=== PATIENT | female | born 1960 | race Caucasian/White ===

== ENCOUNTER 2021-04-11 08:39 | Outpatient (CLI) | payer BC | END 2021-04-11 08:40 | disposition home or self-care (01) | LOC: CSHMRI 08:39 | PROVIDERS: ATTEND Nurse Practitioner Acute Care | DX: G35 Multiple sclerosis (principal); G95.9 Disease of spinal cord, unspecified; M47.812 Spondylosis without myelopathy or radiculopathy, cervical region; R90.82 White matter disease, unspecified | CPT/HCPCS: 70553; 72156 ==

== ENCOUNTER 2021-04-18 08:33 | Outpatient (CLI) | payer BC | END 2021-04-18 08:34 | disposition home or self-care (01) | LOC: CSHMRI 08:33 | PROVIDERS: ATTEND Nurse Practitioner Acute Care | DX: G35 Multiple sclerosis (principal) | CPT/HCPCS: 72157 ==

== ENCOUNTER 2021-10-09 10:55 | Outpatient (CLI) | payer BC | END 2021-10-09 10:56 | disposition home or self-care (01) | LOC: CSHMAMMO 10:55 | PROVIDERS: ATTEND Family Medicine | DX: Z12.31 Encounter for screening mammogram for malignant neoplasm of breast (principal) | CPT/HCPCS: 77063; 77067 ==

== ENCOUNTER 2022-05-29 07:16 | Outpatient (CLI) | payer BC | END 2022-05-29 07:17 | disposition home or self-care (01) | LOC: CSHULT 07:16 | PROVIDERS: ATTEND Family Medicine | DX: I10 Essential (primary) hypertension (principal) | CPT/HCPCS: 93975 ==

== ENCOUNTER 2022-11-10 07:38 | Outpatient (CLI) | payer BC | END 2022-11-10 07:39 | disposition home or self-care (01) | LOC: CSHMAMMO 07:38 | PROVIDERS: ATTEND Family Medicine | DX: Z12.31 Encounter for screening mammogram for malignant neoplasm of breast (principal) | CPT/HCPCS: 77063; 77067 ==

== ENCOUNTER 2023-08-06 08:05 | Outpatient (CLI) | payer BC ==
[2023-08-06] MEDS ORDERED: Magnevist 469MG/ML 20 ML VIAL ONE (09:44)
== END 2023-08-06 08:06 | disposition home or self-care (01) ==
LOC: CSHMRI 08:05
PROVIDERS: ATTEND Psychiatry & Neurology Neurology
DX: G35 Multiple sclerosis (principal)
CPT/HCPCS: 72157; A9579

== ENCOUNTER 2023-08-13 07:38 | Outpatient (CLI) | payer BC | END 2023-08-13 07:39 | disposition home or self-care (01) | LOC: CSHMRI 07:38 | PROVIDERS: ATTEND Psychiatry & Neurology Neurology | DX: G35 Multiple sclerosis (principal); M47.812 Spondylosis without myelopathy or radiculopathy, cervical region | CPT/HCPCS: 70553; 72156 ==